=== PATIENT | male | born 1940 | race Caucasian/White ===

== ENCOUNTER 2016-12-19 23:26 | Inpatient (IN) | payer OTHER ==
[~2016-12-19] VITALS: Ht 177.8 cm; Wt 89.2 kg
--- NOTE | ~2016-12-19 | O ---
[facility] [place] [address] OPERATIVE REPORT Name: LATASHAMARYSOL Mio Room #: 242-P [facility] IN .R.#: [id number] Admission: 12/20/16 Attend Phys: Luis Victoria MD Discharge: Date of : 38 Report #: [id number] THIS REPORT FOR: //name// CC: Sukhjinder Victoria Sofia Sabih DATE OF SERVICE: 12/20/2016 PREOPERATIVE DIAGNOSIS: Urinary retention. POSTOPERATIVE DIAGNOSIS: Bladder neck contracture. PROCEDURE: Cystoscopy, dilation of bladder neck contracture, attempted catheter placement. SURGEON: Stevan Cárdenas M.D. ANESTHESIA: General plus IV sedation with 25 mcg of fentanyl. INDICATIONS: The patient is a 76-year-old gentleman transferred to [facility] with mental status changes. Nurses were unable to place Mixon. He has a history of prostate surgery. DESCRIPTION OF PROCEDURE: Under sterile conditions, I attempted to place a 16-Mauritanian coude catheter unsuccessfully. I then inserted the flexible cystoscope and the urethra was normal right up to the bladder neck at which point there was a very narrow contracture. I dilated. I placed a Glidewire initially and I did dilate this with Contreras sounds and indeed got urine back, but was unable to adequately place catheter over the wire. I tried this again using a Glidewire and met the same outcome. At this point, given the fact that I could at least get a sound in it and dilated, but it would not stay open well enough to place a Mixon, I felt the best option would be to have a suprapubic tube at this point. I then aborted the procedure and called Radiology. He was sent for suprapubic tube placement. <ELECTRONICALLY SIGNED> By: Stevan Cárdenas MD 12/21/16 1411 [id number] [id number] Stevan Cárdenas MD /nt
--- NOTE | ~2016-12-19 | CNG ---
[facility] [place] [address] CYTO-NONGYN REPORT PROCEDURE Name: MARYSOL PAGAN Room #: 242-P ADM IN M.R.#: [id number] Admission: 12/20/16 Date of : 38 Discharge: Report #: [id number] Path Case #: [id number] CYTOPATHOLOGY REPORT COLLECTION DATE: 12/21/2016 RECEIVED DATE: 12/21/2016 SUBMITTING PHYS: Dr. Valente Fernandez OTHER PHYS: Dr. Luis Mari CLINICAL HISTORY: AMS, HCAP. SPECIMEN(S) RECEIVED: A.Pleural fluid * * * * * * * * * * * * FINAL DIAGNOSIS: A. Pleural fluid: - No malignant cells identified. Proteinaceous material and predominantly acute inflammatory cells identified compatible with an exudate. PATHOLOGIST: Kaylah Singh M.D. REPORT ELECTRONICALLY SIGNED BY: Kaylah Singh M.D. DATE/TIME: 12/22/2016 15:22 * * * * * * * * * * * * GROSS PATHOLOGY: A. Pleural fluid: The specimen is submitted unfixed, labeled "Marysol Pagan". Received by the Cytology Department is 15 mL of cloudy yellow fluid. One ThinPrep slide and a formalin fixed cell block were prepared. (clt 12.21.2016) CHEMICAL PROCESSING SUPERVISOR(S): IVANA Aragon([facility]) INITIAL CPT CODE(S): A; 34663, 61114 Professional services performed by [facility] at [facility] [address], [place] [address] Technical services performed by [facility] at [address] [place] [address], [address], [place] [address]. [facility] [address] [place] [address] CYTO-NONGYN REPORT PROCEDURE Name: MARYSOL PAGAN Room #: 242-P ADM IN M.R.#: [id number] Admission: 12/20/16 Date of : 38 Discharge: Report #: [id number] Path Case #: [id number] [place] [address], [facility] [address] [place] [address] PHONE: [phone] DIRECTOR: Jason Guy M.D. * * * END OF REPORT * * *
--- NOTE | ~2016-12-19 | EKG ---
[address] [address] ELECTROCARDIOGRAM REPORT Name: MARYSOL PAGAN Room #: 242-P ADM IN M.R.#: [id number] Admission: 12/20/16 Attend Phys: Luis Victoria MD Discharge: Date of : 38 Report #: [id number] THIS REPORT FOR: //name// [facility] ED Test Date: 2016-12-19 Test Time: 23:24:41 Pat Name: MARYSOL PAGAN Department: Room: 242 Gender: M Summer Nanny: CHUN : 1940 Requested By: Sivan Mabry Order Number: [id number] MD: Adonis Montenegro Measurements Intervals [place] Rate: 90 P: 50 NJ: 150 QRS: 29 QRSD: 121 T: 50 QT: 361 QTc: 442 Interpretive Statements Sinus rhythm Atrial premature complex Nonspecific intraventricular conduction delay Lead(s) III were not used for morphology analysis Compared to ECG 07/27/2014 19:24:12 Atrial premature complex(es) now present First degree AV block no longer present Electronically Signed On 12-20-2016 16:44:59 CDT by Adonis Montenegro [email or web address] <ELECTRONICALLY SIGNED> By: Adonis Montenegro MD 12/20/16 1644 23 Adonis Montenegro MD /EPI
--- NOTE | ~2016-12-19 | HC ---
[facility] [place] [address] CONSULTATION Name: LATASHAMARYSOL Mio Room #: 242-P [facility] IN .R.#: [id number] Admission: 12/20/16 Attend Phys: Luis Victoria MD Discharge: Date of : 38 Report #: [id number] THIS REPORT FOR: //name// CC: Sukhjinder Mari DATE OF SERVICE: 12/20/2016 PRIMARY CARE PHYSICIAN: Sofia Mari M.D. REFERRAL PHYSICIAN: Luis Victoria M.D. REASON FOR REFERRAL: Pneumonia. HISTORY OF PRESENT ILLNESS: The patient is a 76-year-old patient who was brought to the Emergency Room with altered mental status. Chest x-ray shows extensive infiltrates, near complete atelectasis of left lung. A pulmonary consultation was requested. History is limited as the patient is poorly responsive. According to records, the patient is a resident of the [facility]. He is normally more awake. He was found to be less responsive yesterday afternoon. His Alexx Coma Scale was around 4. He was brought to the Emergency Room. PAST MEDICAL HISTORY: Is notable for diabetes mellitus type 2, hypertension, history of heart failure, coronary artery disease with prior cardiac stents, peripheral vascular disease, depression, prostatic cancer status post prostatectomy, history of MRSA infections involving his right calf, history of sleep apnea, intolerant to the use of CPAP, hypercholesterolemia. PAST SURGICAL HISTORY: As mentioned above, herniorrhaphy. ALLERGIES: AMBIEN, WHICH CAUSES AGITATION AND DYSPNEA, ADHESIVE TAPE CAUSES SKIN IRRITATIONS. MEDICATIONS: List are reviewed from the jail. FAMILY HISTORY: Noncontributory. SOCIAL HISTORY: The patient has smoked in the past, but quit some time ago. No alcohol use. REVIEW OF SYSTEMS: Deferred as the patient is not able to provide much history. PHYSICAL EXAMINATION: [facility] [address] [place] [address] CONSULTATION Name: MARYSOL PAGAN Room #: 242-P [facility] IN [facility]#: [id number] Admission: 12/20/16 Attend Phys: Luis Victoria MD Discharge: Date of : 38 Report #: [id number] GENERAL: The patient is somnolent, but in no distress. VITAL SIGNS: Temperature is 97.4, pulse is 69, respiratory rate is 20, blood pressure 123/74 mmHg, and saturation is 94% on 1 liter of O2. HEENT: Normocephalic, atraumatic. NECK: Supple, without any lymphadenopathy or thyromegaly. CHEST: Breath sounds are decreased, but markedly reduced in the left lung field. No obvious wheezes. Few scattered crackles are heard in the bases. CARDIOVASCULAR: Distant heart sounds, no murmurs or gallop. Pulses are 2+/4+ bilaterally. ABDOMEN: Obese, soft, nontender, no organomegaly or masses felt. GENITOURINARY: Deferred. RECTAL: Deferred. EXTREMITIES: 1+ edema bilaterally. No cyanosis or clubbing. LABORATORY DATA: Chest x-ray again shows near complete opacification of the left lung with atelectasis, infiltrates and possible effusion. CT head was unremarkable except for atrophic changes. No acute ischemic changes noted. Electrolytes: Sodium 143, potassium 4.1, chloride 110, CO2 is 24, BUN is 47, creatinine is 1.0. Liver function test is grossly unremarkable. WBC is 17,300. No significant bandemia. Arterial blood gas revealed pH 7.42, pCO2 of 38, pO2 of 90 on 2 liters of O2. Albumin 1.8. IMPRESSION: 1. Extensive left-sided infiltrate, atelectasis in this 76-year-old white male. Pneumonia, suspected, likely aspiration given generalized weakness and debility in this patient. The chest x-ray also suggests probable atelectasis and possible effusion. It is of interest that patient's oxygen demand is only 1-2 liters given extent to the left-sided parenchymal pathology. This would suggest some other changes in the left lung field, maybe chronic. Please see comments below. 2. Altered mental status likely due to toxic and metabolic encephalopathy. 3. Acute hypoxic respiratory failure due to severe sepsis. 4. Severe protein calorie malnutrition. 5. History of lymphedema with past history of cellulitis. 6. Diabetes mellitus type 2. 7. Coronary artery disease, status post prior stent placement with a history of heart failure, suspect underlying ischemic cardiomyopathy. 8. Peripheral vascular disease. 9. Sleep apnea, intolerant to the use of CPAP. 10. Prostate cancer, status post prostatectomy. 11. Generalized debility and weakness. RECOMMENDATION: Agree with broad-spectrum antibiotics, specifically to cover for nosocomial infections and possible aspiration. Wean O2 for saturation 90%. Follow up chest x-ray. If radiographic abnormalities persist, we will proceed with CT chest. DVT and GI prophylaxis will be addressed. [address] [address] CONSULTATION Name: MARYSOL PAGAN Room #: 242-P [facility] IN M.R.#: [id number] Admission: 12/20/16 Attend Phys: Luis Victoria MD Discharge: Date of : 38 Report #: [id number] Given the patient's severe comorbid conditions along with generalized debility and weakness, aspiration is high risk. I am not sure whether the patient can perform a video swallow, may need to have speech evaluation, my suspicion is high for aspirin, the patient will benefit from PEG tube placement. Having said all this, the patient's overall prognosis appeared to be guarded; conservative management may be best advised in this patient. Thank you for this consultation. <ELECTRONICALLY SIGNED> By: Valente Fernandez MD 12/21/16 1706 1546 1844 Valente Fernandez MD /nt
[~2016-12-19 23:26] MED LIST: ALLEGRA ALLERGY60 MG PO; AMARYL2 MG PO; ASPIR 8181 MG PO; CENTRUM SILVER1 EAC2 PO; CLARITIN10 MG PO; CLONIDINE0.1 PO; COENZYME Q10100 MG PO; FLOMAX0.4 MG PO; FLONASE 0.05%50 MCG NASAL; HYDRALAZINE 2525 MG PO; KEFLEX500 MG PO; LASIX 40 MG TAB40 M2 PO; LIPITOR80 MG PO; LOTRIMIN AF12 GM; METFORMIN HCL500 MG PO; MODAFINIL100 MG PO; MUCINEX TA600 MG/TA2 PO; NATURE'S TEARS15 ML OP; NORVASC5 MG PO; PAIN RELIEVER325 MG PO; PAXIL10 MG; PLAVIX 75 MG TA75 M1 PO; POTASSIUM20 PO; PRINIVIL20 MG PO; PROSED DS PO; PROVIGIL 100 M100 M1 PO; PROZAC10 MG PO; PROZAC20 MG PO; SALINE NASAL SP30 ML NASAL; SPIRONOLACTONE25 M1 PO; VITAMIN D 5050000 I1 PO; VITAMIN D1000 UNI1 PO; VITAMIN D3400 UNIT PO; VITAMINC500 PO; ZOFRAN4 MG PO
[2016-12-19 23:56] LABS: HEMATOCRIT 38.4 % (42.0-52.0); HEMOGLOBIN 12.8 gm/dL (14.0-18.0); MCH 31.7 pg (26.0-34.0); MCHC 33.2 g/dL (28.0-37.0); MCV 95.4 fL (80.0-100.0); PLATELET COUNT 287 thou/uL (150-400); RBC 4.03 mil/uL (4.50-6.00); RDW 15.3 % (10.5-14.5); WBC 17.3 thou/uL (4.0-11.0)
[2016-12-19 23:58] LABS: MANUAL DIFF YES
[2016-12-20] VITALS (50 sets, daily range): BP systolic 73–133; BP diastolic 38–104
[2016-12-20 00:02] LABS: ANION GAP 13 mmol/L (7-16); BUN 47 mg/dL (7-18); CALCIUM 9.6 mg/dL (8.5-10.1); CHLORIDE 107 mmol/L (98-107); CO2 24 mmol/L (21-32); GLUCOSE 156 mg/dL (74-106); POTASSIUM 3.7 mmol/L (3.5-5.1); SODIUM 144 mmol/L (136-145)
[2016-12-20 00:10] LABS: TROPONIN-I < 0.04 ng/mL (<0.04-0.07)
[2016-12-20 00:21] LABS: ABG SAMPLE TYPE ARTERIAL; BE(vivo) 0.7 mmol/L (-2 to +3); LACTATE 1.21 mmol/L (0.5-2.0); O2(CT) 17.9 mL/dL (15.0-23.0); O2Hb 95.4 % (92.0-98.0); PCO2 38.9 mmHg (35.0-45.0); PO2 90.6 mmHg (80.0-100.0); STICK SITE L.RADIAL; pH 7.425 (7.360-7.450); sO2 97.1 % (92.0-98.0); tCO2 26.1 mmol/L (24.0-30.0)
[2016-12-20 00:21] LABS: ABSOLUTE NEUTROPHILS 14.9 thou/uL (1.4-8.2); TOTAL CELL COUNT 100
[2016-12-20 13:16] LABS: HEMATOCRIT 39.6 % (42.0-52.0); HEMOGLOBIN 12.9 gm/dL (14.0-18.0); MCH 31.7 pg (26.0-34.0); MCHC 32.5 g/dL (28.0-37.0); MCV 97.6 fL (80.0-100.0); RBC 4.06 mil/uL (4.50-6.00); RDW 15.5 % (10.5-14.5)
[2016-12-20 13:31] LABS: INR 1.1; PROTIME 10.8 Seconds (9.3-11.4)
[2016-12-20 13:32] LABS: ALBUMIN 1.8 g/dL (3.4-5.0); CALCIUM 9.6 mg/dL (8.5-10.1); CREATININE 1.1 mg/dL (0.7-1.3); POTASSIUM 4.1 mmol/L (3.5-5.1); TOTAL BILIRUBIN 0.8 mg/dL (<0.1-1.0); TOTAL PROTEIN 6.1 g/dL (6.4-8.2)
[2016-12-21] VITALS (23 sets, daily range): BP systolic 98–128; BP diastolic 54–94
[2016-12-21 04:21] LABS: HEMATOCRIT 37.4 % (42.0-52.0); HEMOGLOBIN 12.3 gm/dL (14.0-18.0); MCH 32.1 pg (26.0-34.0); MCV 97.3 fL (80.0-100.0); RBC 3.85 mil/uL (4.50-6.00); RDW 15.7 % (10.5-14.5); WBC 17.3 thou/uL (4.0-11.0)
[2016-12-21 04:29] LABS: CALCIUM 9.1 mg/dL (8.5-10.1); CREATININE 0.9 mg/dL (0.7-1.3); POTASSIUM 3.9 mmol/L (3.5-5.1)
[2016-12-21 14:48] LABS: BF NUCLEATED CELLS 1090; BF RBC 791
[2016-12-21 14:51] LABS: TOTAL VOLUME 60 mL
[2016-12-21 14:52] LABS: CLARITY CLEAR; COLOR YELLOW
[2016-12-21 15:54] LABS: BF MACROPHAGE 0; BF NEUTROPHILS 100; MANUAL DIFF YES
[2016-12-22] VITALS (18 sets, daily range): BP systolic 105–133; BP diastolic 54–69
[2016-12-22 03:40] LABS: HEMOGLOBIN 11.5 gm/dL (14.0-18.0); MCHC 32.9 g/dL (28.0-37.0); MCV 97.2 fL (80.0-100.0); PLATELET COUNT 292 thou/uL (150-400); RDW 15.5 % (10.5-14.5); WBC 15.1 thou/uL (4.0-11.0)
[2016-12-22 03:43] LABS: CALCIUM 9.6 mg/dL (8.5-10.1); CREATININE 0.8 mg/dL (0.7-1.3); POTASSIUM 3.2 mmol/L (3.5-5.1)
[2016-12-22 03:55] LABS: MANUAL DIFF YES
[2016-12-22 08:48] LABS: ANISOCYTOSIS 1+; METAMYELOCYTES 3 %; TOTAL CELL COUNT 100
[2016-12-23 07:00] VITALS: BP 128/77
[2016-12-23 08:08] VITALS: BP 136/91
[2016-12-24 11:08] LABS: BODY FLUID AMYLASE 20 U/L (()); BODY FLUID GLUCOSE 4 mg/dL (()); BODY FLUID LDH 1495 IU/L (())
== END 2016-12-23 14:33 | disposition hospice, inpatient (51) | DRG 871 ==
LOC: ER 23:26 → EROBS 12-20 02:20 → ICU 12-20 02:20 → 4E 12-22 17:06
PROVIDERS: Emergency Medicine; Internal Medicine Pulmonary Disease; Nurse Practitioner Family; Radiology Vascular & Interventional Radiology
PROC: 0T7C8DZ Dilation of Bladder Neck with Intraluminal Device, Via Natural or Artificial Opening Endoscopic (ICD-10-PCS; 2016-12-20)
PROC: 0W9B3ZZ Drainage of Left Pleural Cavity, Percutaneous Approach (ICD-10-PCS; principal; 2016-12-21)
DX: A41.9 Sepsis, unspecified organism (principal); J69.0 Pneumonitis due to inhalation of food and vomit; J96.01 Acute respiratory failure with hypoxia; G93.41 Metabolic encephalopathy; E43 Unspecified severe protein-calorie malnutrition; J98.11 Atelectasis; I69.354 Hemiplegia and hemiparesis following cerebral infarction affecting left non-dominant side; E11.51 Type 2 diabetes mellitus with diabetic peripheral angiopathy without gangrene; F32.9 Major depressive disorder, single episode, unspecified; E78.00 Pure hypercholesterolemia, unspecified; I50.9 Heart failure, unspecified; I11.0 Hypertensive heart disease with heart failure; I25.10 Atherosclerotic heart disease of native coronary artery without angina pectoris; R65.20 Severe sepsis without septic shock; N32.0 Bladder-neck obstruction; E78.5 Hyperlipidemia, unspecified; G47.33 Obstructive sleep apnea (adult) (pediatric); F03.90 Unspecified dementia, unspecified severity, without behavioral disturbance, psychotic disturbance, mood disturbance, and anxiety; Z95.5 Presence of coronary angioplasty implant and graft; Z98.42 Cataract extraction status, left eye; Z98.41 Cataract extraction status, right eye; Z85.46 Personal history of malignant neoplasm of prostate; Z86.14 Personal history of Methicillin resistant Staphylococcus aureus infection; Z88.8 Allergy status to other drugs, medicaments and biological substances; Z91.09 Other allergy status, other than to drugs and biological substances; Z79.4 Long term (current) use of insulin; Z68.28 Body mass index [BMI] 28.0-28.9, adult
CPT/HCPCS: 10078; 10783; 50478; 51620; 53650